=== PATIENT | female | born 1960 | race Caucasian/White ===

== ENCOUNTER 2024-12-17 19:46 | Inpatient (IN) | payer SELFPAY ==
[~2024-12-17] VITALS: Ht 157.5 cm; Wt 59.4 kg
[2024-12-17 19:49] VITALS: O2SAT 99
[2024-12-17] MEDS: SODIUM CHLORIDE 0.9% (SEPSIS BOLUS) IV ONE (20:43)
[2024-12-17] MEDS: CEFTRIAXONE 1GM/50ML 50 ML IV ONE (20:43)
[2024-12-17 21:14] LABS: BASOPHILS % 0.2 % (0.0-2.0); EOSINOPHILS % 0.3 % (0.0-5.0); HEMATOCRIT. 34.5 % (36.0-48.0); HEMOGLOBIN. 10.8 g/dL (12.0-16.0); LYMPHOCYTES % 24.0 % (20.0-50.0); MEAN PLATELET VOLUME 9.3 fl (7.4-10.4); MONOCYTES % 6.0 % (2.0-8.0); NEUTROPHILS % 69.5 % (40.0-76.0); PLATELET 193 x1000/uL (130-400); RED BLOOD CELL COUNT 4.24 mill/uL (4.2-5.4); RED CELL DISTRIBUTION WIDTH 15.9 % (11.6-14.6)
[2024-12-17] MEDS: AZITHROMYCIN 500MG/250ML 250 ML IV ONE (21:33)
[2024-12-17 21:34] LABS: INR 1.1
[2024-12-17] MEDS ORDERED: NOREPINEPHRINE 8 MG in DEXT 5% WATER 242 ML IV STA (21:37)
[2024-12-17 21:47] LABS: TROPONIN I HIGH SENSITIVITY 37 ng/L (3.0-34)
[2024-12-17 21:49] LABS: UREA NITROGEN BLOOD 16 mg/dL (9-23)
[2024-12-17 21:50] LABS: CREATININE 0.9 mg/dL (0.6-1.0)
[2024-12-17 21:52] LABS: ASPARTATE AMINOTRANSFERASE 42 IU/L (<34)
[2024-12-17 21:53] LABS: BILIRUBIN DIRECT 0.3 mg/dL (<=3.0); BILIRUBIN TOTAL 0.6 mg/dL (0.1-1.0); PROTEIN TOTAL 5.8 g/dL (6.0-8.3)
[2024-12-17] MEDS: ACETAMINOPHEN 325MG TABLET PO ONE (21:54)
[2024-12-17] MEDS: NOREPINEPHRINE 8MG/250ML PMX 250ML IV PRN (21:55)
[2024-12-17 22:10] LABS: *AMPHETAMINES SCREEN URINE NEGATIVE (NEGATIVE)
[2024-12-17 22:11] LABS: *BARBITURATES SCREEN URINE NEGATIVE (NEGATIVE); *BENZODIAZEPINES SCREEN URINE NEGATIVE (NEGATIVE); *COCAINE SCREEN URINE NEGATIVE (NEGATIVE); CANNABINOID URINE SCREEN NEGATIVE (NEGATIVE); ECSTASY MDMA SCREEN URINE NEGATIVE (NEGATIVE); METHADONE URINE SCREEN NEGATIVE (NEGATIVE); OPIATES URINE SCREEN NEGATIVE (NEGATIVE); PHENCYCLIDINE URINE SCREEN NEGATIVE (NEGATIVE)
[2024-12-17 23:05] LABS: CLARITY URINE CLEAR (CLEAR); COLOR URINE YELLOW (YELLOW); GLUCOSE URINE NEGATIVE (NEGATIVE); KETONES URINE TRACE (NEGATIVE); LEUKOCYTE ESTERASE URINE NEGATIVE (NEGATIVE); NITRITE URINE NEGATIVE (NEGATIVE); OCCULT BLOOD URINE NEGATIVE (NEGATIVE); PH URINE 6.0 (4.5-8.0); PROTEIN URINE 1+ (NEGATIVE); SPECIFIC GRAVITY URINE 1.024 (1.005-1.030); UROBILINOGEN URINE 1 E.U./dL (0.2-1.0)
[2024-12-17] MEDS: ONDANSETRON HCL 4MG/2ML INJ IV ONE (23:16)
[2024-12-17 23:37] LABS: BACTERIA URINE NONE SEEN; RBC URINE NONE SEEN /hpf (0-2); SQUAMOUS EPITHELIAL CELL URINE NONE SEEN /lpf (RARE/1+); WBC URINE NONE SEEN /hpf (0-2)
[2024-12-17 23:43] LABS: TROPONIN I HIGH SENSITIVITY 133 ng/L (3.0-34)
[2024-12-18] MEDS: ENOXAPARIN 60MG/0.6ML SYR SUBCUT ONE (00:48)
[2024-12-18] MEDS: ASPIRIN 325MG EC TABLET PO ONE (00:48)
[2024-12-18 04:00] VITALS: BP 131/63; PULSE 55; RESP 18; TEMP 36.4; O2SAT 99
[2024-12-18 05:28] VITALS: BP 131/63; PULSE 55; RESP 18; TEMP 36.4736
[2024-12-18] MEDS ORDERED: IOHEXOL-350 100 ML BOTTLE ONE (07:03)
[2024-12-18] MEDS ORDERED: ACETAMINOPHEN 325MG TABLET PO PRN (07:45)
[2024-12-18] MEDS ORDERED: IPRATROPIUM/ALBUTEROL 0.5-3(2.5)MG/3ML NEB HHN PRN (07:45)
[2024-12-18 08:00] VITALS: BP 142/60; PULSE 53; RESP 17; TEMP 36.3; O2SAT 99
[2024-12-18] MEDS ORDERED: CLONIDINE 0.1MG TABLET PO PRN (08:00)
[2024-12-18] MEDS: PANTOPRAZOLE SODIUM 40 MG/VIAL IV SCH (09:26)
[2024-12-18] MEDS ORDERED: DEXTROSE 50% WATER 50ML SYRINGE IV PRN (11:30)
[2024-12-18] MEDS: BLOOD SUGAR DIAGNOSTIC STRIP TEST SCH (12:20)
[2024-12-18] MEDS: CLOPIDOGREL 75MG TABLET PO SCH (13:00)
[2024-12-18] MEDS: SODIUM CHLORIDE 0.9% 1,000 ML IV SCH (13:00)
[2024-12-18] MEDS: ASPIRIN 81MG TABLET PO SCH (13:00)
[2024-12-18] MEDS: METRONIDAZOLE 500 MG PREMIX 100 ML IV SCH (13:00)
[2024-12-18] MEDS: LOSARTAN 25 MG TABLET PO SCH (13:45)
[2024-12-18] MEDS: MAGNESIUM 2 G PREMIX 50 ML IV SCH (14:00)
[2024-12-18 16:00] VITALS: BP 139/62; PULSE 59; RESP 18; TEMP 36.1; O2SAT 99
[2024-12-18] MEDS ORDERED: CEFTRIAXONE 1,000 MG in DEXT 5% WATER 100 ML IV SCH (18:15)
[2024-12-18 20:00] VITALS: BP 137/60; PULSE 68; RESP 18; TEMP 36.4; O2SAT 99
[2024-12-18] MEDS: CEFTRIAXONE 1GM/50ML 50ML IV SCH (21:46)
[2024-12-18] MEDS: ENOXAPARIN 40MG/0.4ML SYR SUBCUT SCH (21:52)
[2024-12-18] MEDS: ATORVASTATIN CALCIUM 40MG TABLET PO SCH (21:54)
[2024-12-19] VITALS (7 sets, daily range): BP systolic 133–184; BP diastolic 64–74; PULSE 62–71; RESP 16–19; TEMP 36.1–36.4; O2SAT 98–100
[2024-12-19 00:05] LABS: TRIGLYCERIDE 87.0 mg/dL (0-150)
[2024-12-19 00:06] LABS: LDL CHOLESTEROL 43.0 mg/dL (5-100)
[2024-12-19 00:17] LABS: TROPONIN I HIGH SENSITIVITY 1605 ng/L (3.0-34)
[2024-12-19] MEDS ORDERED: NITROGLYCERIN 0.4MG TABLET SL SL PRN (00:30)
[2024-12-19 06:17] LABS: BASOPHILS % 0.5 % (0.0-2.0); EOSINOPHILS % 1.0 % (0.0-5.0); HEMATOCRIT. 31.5 % (36.0-48.0); HEMOGLOBIN. 10.2 g/dL (12.0-16.0); LYMPHOCYTES % 40.4 % (20.0-50.0); MEAN PLATELET VOLUME 9.3 fl (7.4-10.4); MONOCYTES % 8.8 % (2.0-8.0); NEUTROPHILS % 49.3 % (40.0-76.0); PLATELET 162 x1000/uL (130-400); RED BLOOD CELL COUNT 3.96 mill/uL (4.2-5.4); RED CELL DISTRIBUTION WIDTH 15.4 % (11.6-14.6)
[2024-12-19 06:54] LABS: CREATININE 0.8 mg/dL (0.6-1.0); UREA NITROGEN BLOOD 11 mg/dL (9-23)
[2024-12-19 06:59] LABS: T4 FREE 1.16 ng/dL (0.89-1.76)
[2024-12-19 07:09] LABS: VITAMIN B12 SERUM > 2000 pg/mL (211-911)
[2024-12-19] MEDS ORDERED: SODIUM CHLORIDE 0.45% 1,000 ML IV SCH (07:45)
[2024-12-19] MEDS: APIXABAN 5 MG TABLET PO SCH (09:17)
[2024-12-19] MEDS: HYDRALAZINE 20MG/ML VIAL IV PRN (17:22)
[2024-12-19] MEDS: AMLODIPINE 5MG TABLET PO SCH (18:32)
[2024-12-19] MEDS: ACETAMINOPHEN 325MG TABLET PO PRN (21:04)
[2024-12-19] MEDS: DILTIAZEM HCL 30MG TABLET PO SCH (21:12)
[2024-12-20] VITALS: BP 131/68; PULSE 69; RESP 17; TEMP 36.4; O2SAT 99
[2024-12-20 04:00] VITALS: BP 143/72; PULSE 72; RESP 17; TEMP 36.6; O2SAT 98
[2024-12-20 06:40] LABS: BASOPHILS % 0.3 % (0.0-2.0); EOSINOPHILS % 0.8 % (0.0-5.0); HEMATOCRIT. 37.0 % (36.0-48.0); HEMOGLOBIN. 11.8 g/dL (12.0-16.0); LYMPHOCYTES % 32.7 % (20.0-50.0); MEAN PLATELET VOLUME 8.9 fl (7.4-10.4); MONOCYTES % 10.7 % (2.0-8.0); NEUTROPHILS % 55.5 % (40.0-76.0); PLATELET 174 x1000/uL (130-400); RED BLOOD CELL COUNT 4.64 mill/uL (4.2-5.4); RED CELL DISTRIBUTION WIDTH 15.9 % (11.6-14.6)
[2024-12-20 07:02] LABS: CREATININE 0.7 mg/dL (0.6-1.0); UREA NITROGEN BLOOD 6 mg/dL (9-23)
[2024-12-20 07:04] LABS: PHOSPHORUS 3.6 mg/dL (2.5-4.9)
[2024-12-20 07:37] LABS: TROPONIN I HIGH SENSITIVITY 685 ng/L (3.0-34)
[2024-12-20 08:41] VITALS: BP 113/77; PULSE 61; RESP 16; TEMP 36.4; O2SAT 97
[2024-12-20] MEDS: LOSARTAN 50 MG TABLET PO SCH (09:10)
[2024-12-20 12:39] VITALS: BP 142/77; PULSE 68; RESP 18; TEMP 36.4; O2SAT 98
[2024-12-20] MEDS: DILTIAZEM HCL 60MG TABLET PO SCH (14:47)
[2024-12-20 16:43] VITALS: BP 128/81; PULSE 68; RESP 18; TEMP 36.3; O2SAT 98
[2024-12-20] MEDS: ONDANSETRON HCL 4MG/2ML INJ IV PRN (18:47)
[2024-12-20 20:00] VITALS: BP 146/74; PULSE 70; RESP 18; TEMP 36.3; O2SAT 99
[2024-12-20] MEDS: FERROUS SULFATE 325MG TABLET PO SCH (20:47)
[2024-12-20] MEDS ORDERED: DEXTROSE 50% WATER 50ML SYRINGE IV PRN ×2 (21:45→22:00)
[2024-12-20] MEDS: INSULIN LISPRO 100 UNITS/ML SUBCUT SCH (22:10)
[2024-12-21] VITALS (7 sets, daily range): BP systolic 108–170; BP diastolic 45–90; PULSE 66–91; RESP 18; TEMP 36.1–36.3; O2SAT 98–100
[2024-12-21 06:15] LABS: CREATININE 0.7 mg/dL (0.6-1.0)
[2024-12-21 06:16] LABS: UREA NITROGEN BLOOD 6 mg/dL (9-23)
[2024-12-21 06:18] LABS: PHOSPHORUS 4.9 mg/dL (2.5-4.9)
[2024-12-21 06:19] LABS: BASOPHILS % 0.4 % (0.0-2.0); EOSINOPHILS % 0.2 % (0.0-5.0); HEMATOCRIT. 37.3 % (36.0-48.0); HEMOGLOBIN. 12.2 g/dL (12.0-16.0); LYMPHOCYTES % 16.5 % (20.0-50.0); MEAN PLATELET VOLUME 8.5 fl (7.4-10.4); MONOCYTES % 10.7 % (2.0-8.0); NEUTROPHILS % 72.2 % (40.0-76.0); PLATELET 194 x1000/uL (130-400); RED BLOOD CELL COUNT 4.67 mill/uL (4.2-5.4); RED CELL DISTRIBUTION WIDTH 15.8 % (11.6-14.6)
[2024-12-21 06:46] LABS: TROPONIN I HIGH SENSITIVITY 359 ng/L (3.0-34)
[2024-12-21] MEDS ORDERED: METO-539 PO (09:29)
[2024-12-21] MEDS ORDERED: DULO20CA18 MT (09:30)
[2024-12-21] MEDS ORDERED: ATOR10TA69 MT (09:30)
[2024-12-21] MEDS: METOPROLOL TARTRATE 5MG/5ML VIAL IV NR (09:30)
[2024-12-21] MEDS ORDERED: LISI40TA21 PO (09:31)
[2024-12-21] MEDS ORDERED: METOPROLOL TARTRATE 5MG/5ML VIAL IV PRN (10:45)
[2024-12-21] MEDS: NITROGLYCERIN SPRAY/4.9GM CAN TL ONE (13:40)
[2024-12-21] MEDS ORDERED: IOHEXOL-350 100 ML BOTTLE ONE (14:22)
[2024-12-21] MEDS ORDERED: ASPI-1497 MT (15:58)
[2024-12-21] MEDS ORDERED: FERR325T6 MT (15:58)
[2024-12-21] MEDS ORDERED: ATOR40TA70 MT (15:58)
[2024-12-21] MEDS ORDERED: DILT180C87 MT (15:58)
[2024-12-21] MEDS ORDERED: CEFTRIAXONE 1GM/50ML 50 ML IV SCH (20:00)
== END 2024-12-21 19:00 | disposition home or self-care (01) | DRG 720 ==
LOC: ER 19:46 → 6WST 12-18 00:23 → EDBEDREQ 12-18 00:37 → EDBEDREQTM 12-18 00:37 → EDBEDREQDT 12-18 00:37 → ENRESERV 12-18 02:18
PROVIDERS: ADMIT Hospitalist; ATTEND Hospitalist
DX: A41.9 Sepsis, unspecified organism (principal); R65.21 Severe sepsis with septic shock; E87.20 Acidosis, unspecified; I21.A1 Myocardial infarction type 2; I47.19 Other supraventricular tachycardia; D50.9 Iron deficiency anemia, unspecified; E11.65 Type 2 diabetes mellitus with hyperglycemia; E78.00 Pure hypercholesterolemia, unspecified; I10 Essential (primary) hypertension; I08.0 Rheumatic disorders of both mitral and aortic valves; Z20.822 Contact with and (suspected) exposure to COVID-19; E83.42 Hypomagnesemia; F17.200 Nicotine dependence, unspecified, uncomplicated; K62.89 Other specified diseases of anus and rectum; E86.1 Hypovolemia; K52.9 Noninfective gastroenteritis and colitis, unspecified; I25.2 Old myocardial infarction; Z79.82 Long term (current) use of aspirin
CPT/HCPCS: 36415; 71045; 71275; 74174; 75571; 80048; 80061; 80076; 80305; 80320; 81003; 82378; 82550; 82607; 82728; 82962; 83036; 83520; 83540; 83550; 83605; 83735; 83880; 84100; 84145; 84439; 84443; 84481; 84484; 85025; 85379; 86301; 87426; 93005; 93306; 99291; J0360; J0456; J0696; J1650; J1815; J2405; J2470; J3475; J3490; J7030; J7060; Q9967; G0480